=== PATIENT | male | born 1980 | race African-American/Black ===

== ENCOUNTER 2022-07-15 15:32 | Emergency (ER) | payer OTHER, SELFPAY ==
[2022-07-15 15:38] VITALS: BP 131/79; PULSE 76; RESP 16; TEMP 36.8; O2SAT 100
--- NOTE | 2022-07-15 16:21 | ED_ITS ---
HPI - General Adult General Chief complaint: Anxiety Stated complaint: anxiety Time Seen by Provider: 07/15/22 15:57 History of Present Illness HPI narrative: 42-year-old male presents for evaluation of anxiety, depression and overall feeling overwhelmed due to multiple life stressors. He denies suicidal or homicidal ideation. Related Data Allergies Allergy/AdvReac Type Severity Reaction Status Date / Time No Known Allergies Allergy Verified 07/15/22 15:46 Review of Systems Review of Systems: CONSTITUTIONAL: Denies fever, chills, or sweats. EYES: Denies visual changes, redness, or discharge. ENT: Denies rhinorrhea, congestion, sore throat, or otalgia. CARDIOVASCULAR: Denies chest pain, palpitations, or edema. RESPIRATORY: Denies cough or dyspnea. GASTROINTESTINAL: Denies abdominal pain, nausea, vomiting, or diarrhea. GENITOURINARY: Denies dysuria or hematuria. SKIN: Denies rash or itching. MUSCULOSKELETAL: Denies back pain, joint pain, or myalgia. NEUROLOGIC: Denies headache, numbness, or weakness. PSYCHIATRIC: Denies anxiety or depression. Exam Narrative: GENERAL: Well-appearing, well-nourished, and in no acute distress. HEAD: Normocephalic, atraumatic. EYES: PERRLA and EOMI. ENT: Nares clear, no rhinorrhea or epistaxis. Mucous membranes moist. NECK: Supple. CHEST: Clear to auscultation. No respiratory distress. HEART: Regular rate and rhythm. No murmur heard. Normal peripheral pulses. ABDOMEN: Soft, nontender, nondistended, normal active bowel sounds. EXTREMITIES: Normal range of motion. No edema. SKIN: Warm, dry, no rash. NEURO: No focal deficits. Alert and oriented x3. PSYCH: Normal mood and affect. Course Vital Signs Vital signs: Vital Signs Temperature 98.2 F 07/15/22 15:38 Pulse Rate 76 07/15/22 15:38 Respiratory Rate 16 07/15/22 15:38 Blood Pressure 131/79 07/15/22 15:38 Pulse Oximetry 100 07/15/22 15:38 Oxygen Delivery Room Air 07/15/22 15:38 Temperature 98.2 F 07/15/22 15:38 Pulse Rate 76 07/15/22 15:38 Respiratory Rate 16 07/15/22 15:38 Blood Pressure 131/79 07/15/22 15:38 Pulse Oximetry 100 07/15/22 15:38 Oxygen Delivery Room Air 07/15/22 15:38 Medical Decision Making MDM Narrative Medical decision making narrative: There are no acute medical emergencies which would prevent inpatient psychiatric admission if this is warranted. Patient denies suicidal or homicidal ideation. Vital Signs Vital Signs: Vital Signs Temperature 98.2 F 07/15/22 15:38 Pulse Rate 76 07/15/22 15:38 Respiratory Rate 16 07/15/22 15:38 Blood Pressure 131/79 07/15/22 15:38 Pulse Oximetry 100 07/15/22 15:38 Oxygen Delivery Room Air 07/15/22 15:38 Temperature 98.2 F 07/15/22 15:38 Pulse Rate 76 07/15/22 15:38 Respiratory Rate 16 07/15/22 15:38 Blood Pressure 131/79 07/15/22 15:38 Pulse Oximetry 100 07/15/22 15:38 Oxygen Delivery Room Air 07/15/22 15:38 Discharge Plan Discharge Follow-up/Referrals: PHYSICIAN,POLICY AND PLANNING MANAGER [Primary Care Provider] -
[2022-07-15 16:42] LABS: Basophils Absolute Auto 0.1 K/mm3 (0.0-0.1); Basophils Percent Auto 0.6 % (0.2-1.2); Eosinophils Absolute Auto 0.1 K/mm3 (0-0.3); Eosinophils Percent Auto 1.4 % (0-4.4); Hematocrit 42.4 % (42.0-52.0); Hemoglobin 14.2 g/dL (14.0-18.0); Immature Granulocyte Absolute 0.03 K/mm3 (0.00-0.031); Immature Granulocyte Percent A 0.4 % (0-0.5); Lymphocytes Absolute Auto 1.19 K/mm3 (0.9-3.2); Lymphocytes Percent Auto 14.9 % (18.3-44.2); Mean Corpuscular HGB Conc 33.5 g/dl (32-36); Mean Corpuscular Hemoglobin 30.5 pg (26-34); Mean Platelet Volume 9.7 fl (7.4-10.4); Monocytes Absolute Auto 0.5 K/mm3 (0.1-0.6); Monocytes Percent Auto 6.6 % (2.6-8.5); Neutrophils Absolute Auto 6.1 K/mm3 (1.3-6.7); Neutrophils Percent Auto 76.1 % (45.5-73.1); Platelet Count Result 281 k/mm3 (150-375); Red Blood Count 4.66 M/mm3 (4.6-6.20); Red Cell Distribution Width 13.6 % (11.5-14.5)
[2022-07-15 16:43] LABS: Appearance Urine Clear (Clear); Bilirubin Urine Negative (Negative); Blood Urine Negative (Negative); Color Urine Yellow (Yellow); Glucose Urine UA Negative (Negative); Ketones Urine Negative (Negative); Leukocyte Esterase Ur Negative LEU/UL (Negative); Nitrate Urine Negative (Negative); Protein Urine Negative (Negative)
[2022-07-15 16:45] LABS: Add Urine Microscopic? NO
[2022-07-15 16:57] LABS: Acetaminophen < 10 ug/mL (10-30); Ethanol < 10 mg/dL (<10); Salicylate < 1.0 mg/dL (2-20)
[2022-07-15 16:58] LABS: Alanine Aminotransferase 20 U/L (6-50); Albumin Level 4.3 g/dL (3.5-5.1); Alkaline Phosphatase 49 U/L (38-126); Anion Gap 5 mmol/L (8-16); Aspartate Amino Transferase 27 U/L (17-59); Bilirubin,Total 0.6 mg/dL (0.2-1.3); Blood Urea Nitrogen 9 mg/dL (9-20); Calcium 8.8 mg/dL (8.4-10.2); Carbon Dioxide 28 mmol/L (22-30); Chloride 105 mmol/L (98-107); Estimated CRCL calculation 122 ml/min; Estimated Glomerular Filt Rate > 60; Glucose 102 mg/dL (65-110); Potassium 4.3 mmol/L (3.4-5.0); Sodium 138 mmol/L (137-145)
[2022-07-15 17:08] LABS: Amphetamine Screen Urine Negative (Negative); Barbiturate Screen Urine Negative (Negative); Benzodiazepines Screen Urine Negative (Negative); Cannabinoid Screen Urine Positive (Negative); Cocaine Screen Urine Negative (Negative); Methadone Screen Urine Negative (Negative); Opiate Screen Urine Negative (Negative); Phencyclidine Screen Urine Negative (Negative)
[2022-07-15] MEDS: LORazepam (*CRX) 0.5 MG TABLET PO (17:18)
[2022-07-15 17:34] LABS: Thyroid Stimulating Hormone 0.176 uIU/mL (0.465-4.680)
--- NOTE | 2022-07-15 19:27 | PC.NURSE ---
Assumed care of patient.
--- NOTE | 2022-07-15 19:35 | PC.NURSE ---
Patient being assessed by Crisis at this time. Patient was seen leaving the ED with his SO by his side by ERP. Patient left before any discharge papers were printed.
[2022-07-15 19:39] LABS: SARS-CoV-2 RNA PCR Negative (Negative)
== END 2022-07-15 20:00 | disposition home or self-care (01) ==
PROVIDERS: Emergency Provider Emergency Medicine
DX: F41.9 Anxiety disorder, unspecified (principal); F32.A Depression, unspecified; Z20.822 Contact with and (suspected) exposure to COVID-19
CPT/HCPCS: 36415; 80053; 80307; 81003; 84443; 85025; 87635; 99284; A9270